=== PATIENT | female | born 1975 | race Caucasian/White ===

== ENCOUNTER 2016-08-01 17:35 | Emergency (ER) | payer OTHER ==
[~2016-08-01] VITALS: Ht 162.6 cm; Wt 97.7 kg
[~2016-08-01 17:35] MED LIST: ALPR0.5T PO; AMPH20TA5 PO; CITA40TA13 PO; DOXE50CA3 PO; ETON1VAG VG; LEVO88TA4 PO; LISI10TA PO; OMEP20CA11 PO; TRAZ-118 PO
[2016-08-01 17:37] VITALS: BP 133/87; PULSE 84; RESP 16; O2SAT 99
[2016-08-01] MEDS ORDERED: VALA500T38 PO (17:43)
[2016-08-01] MEDS ORDERED: DOXE150C7 PO (17:43)
[2016-08-01] MEDS ORDERED: AMPH20CA PO (17:43)
[2016-08-01] MEDS ORDERED: LOSA25TA21 PO (17:43)
[2016-08-01] MEDS ORDERED: DULO30CA50 PO (17:43)
--- NOTE | 2016-08-01 18:18 | DRSVH ---
PROCEDURE: X-RAY CHEST ONE VIEW, PORTABLE ([id number]) INDICATIONS: chest pain TECHNIQUE: One view of the chest was acquired. COMPARISON: None. FINDINGS: Surgical changes and devices: None. Lungs and pleura: No pleural effusions or pneumothorax. Lungs are clear. Mediastinum: Mediastinal contours appear normal. Large right mediastinal calcified lymph node is not ed. Heart size is normal. Bones and chest wall: No suspicious bony lesions. Overlying soft tissues appear unremarkable. IMPRESSION: 1. No acute cardiopulmonary disease process. 2. Calcified mediastinal lymph node. Differential is broad but includes sequela of granulomatous di sease, sarcoid and silicosis. Dictated by: Sunita Ordonez MD, PhD on 08/01/2016 at 18:15 Approved by: Sunita Ordonez MD, PhD on 08/01/2016 at 18:17
--- NOTE | 2016-08-01 18:24 | ED.REPORT ---
HPI-Chest Pain 40 and Over Date of Service Aug 01, 2016 ED Provider: Shaunna Umaña MD History of Present Illness: Hanna Lafleur is a 40 year old woman with a PMH of HTN, anxiety, depression, and hypothyroid who presents following sudden onset substernal chest pain with radiation to the back at work today. She states that this felt similar to previous anxiety attacks that she has had in the past, but that usually a Xanax relieves her chest pain and this time it did not. She denies MARADIAGA, orthopnea, palpitations, diaphoresis, or any acutely stressful events in her life. Nursing Notes Stated Complaint: CHEST PAIN Chief Complaint: Chest Pain Nursing Notes Reviewed: Yes Allergies: Coded Allergies: hydrocodone (Verified Allergy, Mild, itching, 08/01/16) lamotrigine (Verified Allergy, Mild, rash, 08/01/16) codeine (Verified Allergy, Unknown, 08/01/16) propoxyphene (Verified Allergy, Unknown, 08/01/16) Scheduled Dextroamphetamine/Amphetamine ER (Dextroamphetamine/Amphetamine ER) 20 Mg Capsule 2 TAB PO DAILY Doxepin (Doxepin) 150 Mg Capsule 150 MG PO HS Duloxetine (Duloxetine) 30 Mg Capsule.dr 90 MG PO DAILY Levothyroxine (Levothyroxine) 88 Mcg Tablet 88 MCG PO DAILY Losartan Potassium (Losartan Potassium) 25 Mg Tablet 25 MG PO DAILY Omeprazole (Omeprazole) 20 Mg Capsule.dr 20 MG PO BID Trazodone (Trazodone) 100 Mg Tablet 100 MG PO HS Valacyclovir (Valacyclovir) 500 Mg Tablet 500 MG PO DAILY Scheduled PRN Alprazolam (Xanax) 0.5 Mg Tablet 0.5 MG PO TID PRN PRN For Anxiety Miscellaneous Medications Etonogestrel/Ethinyl Estradiol (Nuvaring Vaginal Ring) 1 Each Vag.ring 1 EACH VG General Time Seen by MD: 18:15 Chief Complaint Chest pain Hx Obtained From: Patient Arrived By: Walk-in Sudden in Onset?: Yes Onset Occurred: 1 - 4 hours ago Symptom Duration: Since onset Location: : Chest left Quality: Aching Radiation: : Back Severity: Current: Mild Severity: Maximum: Moderate Recent Healthcare: No recent doctor visit Similar Sx Previous: Yes Risk Factors )( CAD Risk Stratification Hypertension )( TAD Risk Stratification Hypertension Past Medical History Past Medical History Anxiety Bipolar ADHD Depression Reports: GERD, Hypertension Reports: Thyroid disease Past Surgical History None Family History Patient's aunt had an aortic dissection at age 60 Smoking History Never Smoker Social History Pt report drinking alcohol 3-4 times a week (a glass of wine or a mixed drink) and has a history of THC use but not recently. She is currently living in [place] with her sister. She has been marrried twice. Drug Use: THC Ambulatory Status Independent Review of Systems Cardiovascular: Reports: Chest pain Psychiatric: Reports: Anxiety Complete sys rev & neg: except as marked. Physical Exam Physical Exam Notes: Gen: A/O x3 pleasant cooperative obese woman in NAD Neck: Supple, full ROM, no thyromegally HEENT: PERRL, EOMI, no scleral icterus, no conjunctival pallor CV: RRR, no murmurs rubs or gallops Resp: Lungs CTA BL, no wheezing rales or rhonchi Extr: No cyanosis, clubbing or edema Neuro: CN 2-12 grossly intact, no focal neurologic deficit. Initial Vital Signs Vital Signs (First) Date Time Temp Pulse Resp B/P Pulse Ox O2 Delivery O2 Flow Rate FiO2 08/01/16 17:37 37.1 84 16 133/87 99 Room Air Initial VS: Reviewed Interpretation & Diagnostics Interpretation & Diagnostics: X-RAY CHEST ONE VIEW, PORTABLE IMPRESSION: 1. No acute cardiopulmonary disease process. 2. Calcified mediastinal lymph node. Differential is broad but includes sequela of granulomatous disease, sarcoid and silicosis. Lab Results Interpretation Result Diagram: 08/01/16 1820 08/01/16 1820 Test 08/01/16 18:20 08/01/16 20:30 White Blood Count 8.1th/mm3 (3.8-10.1) Red Blood Count 3.45mil/mm3 (3.90-5.20) Hemoglobin 10.8g/dL (12.0-15.6) Hematocrit 33.4% (35.0-46.0) Mean Corpuscular Volume 96.8fL (81-100) Mean Corpuscular Hemoglobin 31.3pg (27.0-35.0) Mean Corpuscular Hemoglobin Concent 32.3% (32.0-37.0) Red Cell Distribution Width 12.1% (12.3-15.4) Platelet Count 284bil/L (150-400) Neutrophils (%) (Auto) 57.3% (40-74) Lymphocytes (%) (Auto) 36.0% (14-46) Monocytes (%) (Auto) 6.0% (4-12) Eosinophils (%) (Auto) 0.4% (0-5) Basophils (%) (Auto) 0.2% (0-3) Sodium Level 138mEq/L (134-144) Potassium Level 3.9mEq/L (3.5-5.2) Chloride Level 101mEq/L (97-108) Carbon Dioxide Level 23mmol/L (18-29) Blood Urea Nitrogen 8mg/dL (6-24) Creatinine 0.78mg/dL (0.57-1.00) Estimat Glomerular Filtration Rate 117mL/min (>59) Glucose Level 104mg/dL (60-99) Calcium Level 8.8mg/dL (8.5-10.1) Magnesium Level 1.9mg/dL (1.6-2.6) Total Bilirubin 0.2mg/dL (0.0-1.2) Aspartate Amino Transf (AST/SGOT) 14U/L (0-50) Alanine Aminotransferase (ALT/SGPT) 12U/L (0-32) Alkaline Phosphatase 66U/L (25-150) Total Protein 6.3g/dL (6.4-8.4) Albumin 3.6g/dL (3.4-5.0) Hold Mcgill Top Tube Received (Received) Troponin T 0.010ug/L (0.0-0.011) ECG Interpretation Interpreted by: ED physician Abnormal Rate: Rate (70) Abnormal T wave or ST segment: T-waves flat-inv septum (V1) Repeat ECG: Repeat ECG unchanged Re-Eval/Medical Decision Med Decision/Clinical Course Patient's ECG significant only for V1 T wave inversion otherwise normal sinus, 1st Trop negative, second Trop repeated 3 hrs later also negative, repeat ECG unremarkable. Thus patient was felt to be stable for DC. Discharge instructions and return precautions given. The patient expressed understanding of and agreement with the plan of care. Discharge & Departure Shift Change Sign-Out Patient Care Transferred: No Discussed Complaint(s): Yes Laboratory Evaluation: Lab evaluation discussed Imaging Studies: Imaging discussed Primary Impression: Non-cardiac chest pain Disposition: Home Discharge Condition All VS Reviewed: Yes Condition: Stable Patient Instructions: Chest Pain (ED) Additional Instructions: At this time there does not appear to be any concerning findings in regards to the chest pain that you experienced earlier. Most likely this was a similar episode to prior chest pains you have had from anxiety, you were absolutely right to come in after the Xanax failed to resolve your pain. In the future symptoms to be concerned about would be chest pain that increases with exertion, chest pain with associated chest pressure, radiation of chest pain to the left arm or jaw, sweating, or chest pain of greater intensity than what you have experienced earlier. Referrals: Ramona Peraza (PCP) Attending Statement I agree with resident's history, physical, assessment, and plan. 40-year-old female with history of hypertension, hypothyroidism, anxiety here with chest pain which radiates to her back. Differential diagnosis includes but is not limited to ACS versus anxiety versus aortic dissection versus pneumonia. Patient's blood pressure is only very slightly elevated. At this time, with a normal chest x-ray, I do not feel she has aortic dissection, nor do I feel she requires workup for it. She is low risk, and 2 troponins were negative along with 2 normal EKGs. Patient is amenable to discharge at this time with follow- up with her primary care physician. copies to: Ramona Peraza David E DO Aug 01, 2016 18:24 Shaunna Umaña MD Aug 01, 2016 22:24
[2016-08-01 18:46] LABS: BASOPHILS % (AUTO) 0.2 % (0-3); EOSINOPHILS % (AUTO) 0.4 % (0-5); Mean Corpuscular Hemoglobin 31.3 pg (27.0-35.0); Mean Corpuscular Volume 96.8 fL (81-100); NEUTROPHILS % (AUTO) 57.3 % (40-74); Platelet Count 284 bil/L (150-400)
[2016-08-01 18:58] LABS: TROPONIN T < 0.010 ug/L (0.0-0.011)
[2016-08-01 19:08] LABS: Magnesium 1.9 mg/dL (1.6-2.6)
[2016-08-01 19:22] VITALS: BP 117/76; PULSE 90; RESP 16; O2SAT 100
[2016-08-01] MEDS ORDERED: Albuterol 2.5 mg/3 mL Inhalation Solution NEB ONE (21:20)
[2016-08-01 21:57] VITALS: BP 118/75; PULSE 90; RESP 19; O2SAT 96
== END 2016-08-01 21:57 | disposition home or self-care (01) ==
LOC: SED 17:35
DX: R07.89 Other chest pain (principal); I10 Essential (primary) hypertension; K21.9 Gastro-esophageal reflux disease without esophagitis; Z88.5 Allergy status to narcotic agent; Z88.8 Allergy status to other drugs, medicaments and biological substances